=== PATIENT | male | born 1935 | race Caucasian/White ===

== ENCOUNTER 2016-11-05 07:45 | Day surgery (SDC) | payer MEDICARE, OTHER ==
--- NOTE | 2016-10-30 08:33 | HISTORY AND PHYSICAL E ---
History and Physical NAME: VANESSA MOHAMUD : 1935 AGE: 80Y ADMITTED: 11/05/2016 ROOM: CHIEF COMPLAINT: Colon screening, history of polyps. HISTORY AND PHYSICAL: The patient is known to me for many years. Multiple colonoscopies show colorectal polyps. Colonoscopy in 2014 is showing the following: The patient was admitted in 2014 where he underwent colonoscopy showing thrombosed hemorrhoids, diminutive rectosigmoid polyps. The patient has a history of adenoma polyps and thrombosed hemorrhoids. At this time the patient is for colonoscopy. PHYSICAL EXAMINATION: GENERAL: Pleasant, alert, oriented, in no acute distress. VITAL SIGNS: Afebrile. Blood pressure is 120/80, pulse 80, respirations 18, temp is 98. HEENT: Normal. NECK: Supple. LUNGS: Clear. ABDOMEN: Soft. NEUROLOGIC: Exam is negative. CONCLUSIONS: Colon exam with history of colorectal polyps, history of hemorrhoids, history of blood in the stool. Colon screening with history of adenoma polyps and thrombosed hemorrhoids. PLAN: Colonoscopy. Admit on 11/05/2016. MEDICATIONS: The patient is on Claritin, Dexilant, aspirin, simvastatin and B12 replacement. DICTATING PHYSICIAN: MELANIE CHAPMAN M.D. [id number] [id number] PHY#: [id number] ID: [id number] JOB#: [id number] ACCT: [id number] cc:MELANIE CHAPMAN M.D. >
[~2016-11-05 07:45] MED LIST: EPINEPHRINE INJ 1 MG/10 ML DISP.SYRIN ONE; FENTANYL CITRATE INJ/PF 100 MCG/2 ML AMPUL ONE; FLUMAZENIL INJ 0.5 MG/5 ML VIAL ONE; GLUCAGON,HUMAN RECOMB 1 MG INJ ONE; GLYCOPYRROLATE INJ 0.4 MG/2 ML VIAL ONE; LIDOCAINE 2% JELLY 30 ML TUBE ONE; MIDAZOLAM 2 MG/2 ML INJ ONE; NALOXONE HCL INJ/PF 0.4 MG/1 ML SDV ONE; ONDANSETRON HCL INJ/PF 4 MG/2 ML SDV ONE
[2016-11-05 10:22] VITALS: BP 102/50
--- NOTE | 2016-11-05 15:29 | DISCHARGE SUMMARY E ---
Discharge Summary NAME: VANESSA MOHAMUD : 1935 AGE: 80Y ADMITTED: 11/05/2016 DISCHARGED: 11/05/2016 FINAL DIAGNOSES: 1. Diverticulosis sigmoid descending colon. 2. Remote history of polyp with cancer in situ years ago. 3. Multiple polyps in the past. Today's colonoscopy shows no evidence of polyps. No evidence of malignancy. 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 He does have diabetes, CT, hypertension, reflux, and coronary artery bypass. Today's colonoscopy shows no polyps, mild diverticulosis. DISCHARGE PLAN: 1. Soft diet for 2 days. 2. Resume all meds. 3. Followup visit in the next few days. DICTATING PHYSICIAN: MELANIE CHAPMAN M.D. [id number] [id number] Y#: [id number] ID: [id number] JOB#: [id number] ACCT: [id number] cc:MELANEI CHAPMAN M.D. >
--- NOTE | 2016-11-05 15:29 | OPERATIVE REPORT E ---
Operative Report NAME: VNAESSA MOHAMUD : 1935 AGE: 80Y DATE OF SURGERY: 11/05/2016 ROOM: PREOPERATIVE DIAGNOSES: 1. Colon screening. 2. History of polyps. POSTOPERATIVE DIAGNOSIS: Diverticulosis sigmoid colon. PROCEDURE: Colonoscopy. SURGEON: MELANIE CHAPMAN M.D. ANESTHESIA: Versed 2, fentanyl 50. TISSUE REMOVED OR ALTERED: None. PROCEDURE: Rectal exam shows enlarged prostate, otherwise normal. Sigmoid diverticulosis. Descending colon: Mild diverticulosis. Inadequate prep. Moderate amount of liquidy stool. Transverse colon normal. Ascending colon normal. Cecum normal. Terminal ileum intubated. Normal distal terminal ileum. Scope withdrawn back, cecum, ascending, moderate amount of liquidy stool, transverse, descending, sigmoid, all the way to the rectum. CONCLUSION: 1. Diverticulosis sigmoid descending colon. 2. No evidence of polyps. 3. Prep inadequate. PLAN: 1. Consider colonoscopy. 2. Followup 5-10 years, pending on the clinical evaluation. 3. At the present, no polyps, no malignancy, no bleeding, mild diverticulosis. DICTATING PHYSICIAN: MELANIE CHAPMAN M.D. [id number] [id number] PHY#: [id number] ID: [id number] JOB#: [id number] ACCT: [id number] cc:MELANIE CHAPMAN M.D. >
== END 2016-11-05 10:20 | disposition home or self-care (01) ==
LOC: END 07:45
PROVIDERS: ATTEND Specialist
PROC: 0DJD8ZZ Inspection of Lower Intestinal Tract, Via Natural or Artificial Opening Endoscopic (ICD-10-PCS; principal; 2016-11-05 09:00)
DX: Z12.11 Encounter for screening for malignant neoplasm of colon (principal); K57.30 Diverticulosis of large intestine without perforation or abscess without bleeding; Z86.010 Personal history of colon polyps; Z85.038 Personal history of other malignant neoplasm of large intestine; Z90.49 Acquired absence of other specified parts of digestive tract; E11.9 Type 2 diabetes mellitus without complications; I10 Essential (primary) hypertension; K21.9 Gastro-esophageal reflux disease without esophagitis; I25.2 Old myocardial infarction; Z79.899 Other long term (current) drug therapy
CPT/HCPCS: 82962; G0121; J2250; J3010; J1610; 45378; J0171; J2310; J2405; J3490